=== PATIENT | male | born 1935 | race Caucasian/White ===

== ENCOUNTER 2021-12-06 10:39 | Emergency (ER) | payer OTHER ==
[~2021-12-06] VITALS: Ht 182.9 cm; Wt 90.7 kg
[~2021-12-06 10:39] MED LIST: BONINE25 MG PO; Zofran Odt8 MG SL
[2021-12-06 11:49] LABS: BASOPHILS ABSOLUTE AUTO 0.07 K/mm3 (0.00-0.23); BASOPHILS PERCENT AUTO 1 % (0-2); EOSINOPHILS ABSOLUTE AUTO 0.22 K/mm3 (0.00-0.68); EOSINOPHILS PERCENT AUTO 2 % (0-6); Hematocrit 42.2 % (37.0-53.0); Hemoglobin 13.7 g/dL (13.5-17.5); IMMATURE GRAN ABSOLUTE AUTO 0.06 K/mm3 (0.00-0.10); IMMATURE GRAN PERCENT AUTO 1 % (0-1); LYMPHOCYTES ABSOLUTE AUTO 3.76 K/mm3 (0.84-5.20); LYMPHOCYTES PERCENT AUTO 30 % (21-46); MONOCYTES PERCENT AUTO 13 % (4-13); Mean Corpuscular HGB 29.2 pg (26.0-34.0); Mean Corpuscular HGB Conc 32.5 g/dL (31.5-36.5); Mean Corpuscular Volume 90 fL (80-100); Mean Platelet Volume 9.9 fL (9.1-12.4); NEUTROPHILS PERCENT AUTO 54 % (41-73); Platelet Count 202 K/mm3 (150-400); RDW Coefficient Variation 13.1 % (11.7-14.2); RDW Standard Deviation 42.6 fL (35.1-46.3); Red Blood Cell Count 4.69 M/mm3 (4.30-5.90); White Blood Cell Count 12.51 K/mm3 (4.00-11.30)
[2021-12-06 12:03] LABS: C-REACTIVE PROTEIN, EXT RANGE 7.94 mg/dL (0.000-0.300)
[2021-12-06 12:06] LABS: Albumin, Blood 3.4 g/dL (3.4-5.0); Albumin/Globulin Ratio 0.7 (0.8-1.8); Bilirubin, Total 0.8 mg/dL (0.1-1.0); Bun/Creatinine Ratio 12.3 (12.0-20.0); Calcium, Blood 9.1 mg/dL (8.5-10.1); Creatinine, Blood 1.38 mg/dL (0.60-1.20); Globulin, Blood 4.9 g/dL (2.2-4.0); Potassium, Blood 3.9 mmol/L (3.5-5.5); Total Protein, Blood 8.3 g/dL (6.4-8.2)
[2021-12-06] MEDS ORDERED: METO25ER PO (13:28)
[2021-12-06] MEDS ORDERED: METF500 PO (13:28)
[2021-12-06] MEDS ORDERED: Vitamin D1000 UNI1 PO (13:29)
[2021-12-06] MEDS ORDERED: EUTHYROX88 MCG PO (13:29)
[2021-12-06] MEDS ORDERED: ASPI81CH PO (13:29)
[2021-12-06] MEDS ORDERED: CIPR500 PO (13:30)
[2021-12-06] MEDS ORDERED: CEPH500 PO (14:25)
== END 2021-12-06 14:58 | disposition home or self-care (01) ==
LOC: ER 10:39
PROVIDERS: Physician Assistant
DX: L03.115 Cellulitis of right lower limb (principal); Z79.899 Other long term (current) drug therapy; Z79.84 Long term (current) use of oral hypoglycemic drugs; Z79.82 Long term (current) use of aspirin; Z87.891 Personal history of nicotine dependence
CPT/HCPCS: 36415; 73630; 80053; 85025; 85651; 86140; 96372; 99283-25; J0696

== ENCOUNTER 2022-10-08 11:31 | Day surgery (SDC) | payer OTHER ==
[~2022-10-08] VITALS: Ht 177.8 cm; Wt 91.2 kg
[~2022-10-08 11:31] MED LIST changes: +ASPI81CH PO; +CEPH500 PO; +CIPR500 PO; +EUTHYROX88 MCG PO; +METF500 PO; +METO25ER PO; +Vitamin D1000 UNI1 PO
[2022-10-08] MEDS ORDERED: FAMO40 PO (12:11)
--- NOTE | 2022-10-08 12:55 | NUR ---
DR. SCHWARZ AT THE BEDSIDE AND SPOKE WITH THE PATIENT, [employer] AT THE BEDSIDE ALSO AND IMPLANT INTERROGATED.
--- NOTE | 2022-10-08 14:57 | NUR ---
PATIENT RETURNS FROM THE [facility] VIA RECLINER S/P PACEMAKER GENERATOR CHANGE OUT. PATIENT PLACED ON THE MONITOR AND CALL LIGHT IN REACH. COFFEE SERVED ADN BROUGHT TO THE BEDSIDE.
[2022-10-08] MEDS ORDERED: CEPH500 PO (15:33)
--- NOTE | 2022-10-08 16:36 | NUR ---
PATIENT DRESSING WITH WIFES ASSISTANCE. PIV REMOVED AND PRESSURE DRESSING APPLIED. REVIEWED DISCHARGE INGSTRUCTIONS AND PRESCRIPTIONS FOR [facility] THAT THEY ARE GOING TO [place] NOW AND START TONIGHT. INSTRUCTED ON FOLLOW UP APPOINTMENTS FOR WOUND CHECK AND PACEMAKER FOLLOW UP APPOINTMENT. ALL QUESTIONS ANSWERED ADN COPIES GIVEN TO THE PATIENT. ALL BELONGINGS GATHERED AND PAITENT DISCHARGED HOME VIA WHEELCHAIR.
== END 2022-10-08 17:00 | disposition home or self-care (01) ==
LOC: MHTC 11:31
DX: Z45.010 Encounter for checking and testing of cardiac pacemaker pulse generator [battery] (principal); I42.0 Dilated cardiomyopathy; E11.22 Type 2 diabetes mellitus with diabetic chronic kidney disease; I12.9 Hypertensive chronic kidney disease with stage 1 through stage 4 chronic kidney disease, or unspecified chronic kidney disease; N18.9 Chronic kidney disease, unspecified; E03.9 Hypothyroidism, unspecified
CPT/HCPCS: 33222; 33228; 99152; 99153; C1781; C1785; J0690; J1644; J2250; J3010; J7030; J7040